=== PATIENT | male | born 1965 | race Two or more races ===

== ENCOUNTER 2021-11-28 21:13 | Inpatient (IN) | payer OTHER ==
[~2021-11-28] VITALS: Ht 167.6 cm; Wt 81.6 kg
[2021-11-28] MEDS ORDERED: AMLODIPINE-OLM1 EAC2 (21:16)
[2021-11-28] MEDS ORDERED: SYNTHROID75 MCG PO (21:16)
--- NOTE | 2021-11-28 21:16 | NUR ---
SE RECIBE PTE ALERTA Y ORIENTADO X3,EN [facility] POR DOLOR ABDOMINAL ,PTE FUE DIAGNOSTICADO CON APENDICITIS,LLEGO CANALIZADO EN LA MANO DERECHA CON UN 0.9% ANGIO 20.
== END 2021-11-30 19:10 | disposition home or self-care (01) | DRG 340 ==
LOC: ER 21:13 → SURH 21:54 → SURG 21:54 → SURH 22:48
PROVIDERS: Surgery; ADMIT Internal Medicine; ATTEND Internal Medicine
PROC: 0DTJ4ZZ Resection of Appendix, Percutaneous Endoscopic Approach (ICD-10-PCS; principal; 2021-11-29 07:15)
DX: K35.32 Acute appendicitis with perforation, localized peritonitis, and gangrene, without abscess (principal); R10.13 Epigastric pain; D72.828 Other elevated white blood cell count; I10 Essential (primary) hypertension; Z20.822 Contact with and (suspected) exposure to COVID-19